=== PATIENT | male | born 2000 | race Caucasian/White ===

== ENCOUNTER 2020-04-20 01:24 | Observation (INO) | payer OTHER ==
[~2020-04-20] VITALS: Ht 182.9 cm; Wt 89.8 kg
[2020-04-20 01:44] LABS: HEMATOCRIT 41.2 % (42.0-52.0); HEMOGLOBIN 14.1 g/dl (13.5-17.5); MEAN CORPUSCULAR HEMOGLOBIN 29.9 pg (27.0-33.0); MEAN CORPUSCULAR HGB CONC 34.2 g/dl (32.0-36.5); MEAN CORPUSCULAR VOLUME 87.3 fl (80.0-96.0); PLATELET COUNT, AUTOMATED 241 10^3/uL (150-450); RED BLOOD COUNT 4.72 10^6/uL (4.30-6.10); WHITE BLOOD COUNT 10.9 10^3/uL (4.0-10.0)
[2020-04-20 02:07] LABS: ACETAMINOPHEN LEVEL < 2.0 UG/ML (10.0-30.0); ALBUMIN 4.5 GM/DL (3.2-5.2); ALT/SGPT 74 U/L (12-78); BILIRUBIN,DIRECT 0.1 MG/DL (0.0-0.2); BILIRUBIN,TOTAL 0.5 MG/DL (0.2-1.0); BLOOD UREA NITROGEN 13 MG/DL (7-18); CALCIUM LEVEL 8.6 MG/DL (8.5-10.1); CARBON DIOXIDE LEVEL 25 MEQ/L (21-32); CHLORIDE LEVEL 108 MEQ/L (98-107); CREATININE FOR GFR 1.08 MG/DL (0.70-1.30); ETHYL ALCOHOL (ETHANOL) 0.188 % (0.000-0.010); GLOMERULAR FILTRATION RATE > 60.0 (>60); GLUCOSE, FASTING 92 MG/DL (70-100); SALICYLATE LEVEL < 1.7 MG/DL (5.0-30.0); SODIUM LEVEL 143 MEQ/L (136-145); TOTAL PROTEIN 8.5 GM/DL (6.4-8.2)
--- NOTE | 2020-04-20 04:11 | HPEPDOC ---
General Date of Admission 04/20/2020 Date of Service: Apr 20, 2020 Primary Care Physician: MELCHOR AGUILAR DO Chief Complaint The patient is a 19-year-old male admitted with a reason for visit of Etoh And Drug Use. 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 He has been in good health. Yesterday morning, he was doing lifts, and in injured his lower back. His pain was persistent and did not improve as the day went on. That evening, he was drinking alcohol. He had 3x 42oz malt. He took someone else's OxyContin to help control the pain. He took a total of 5x 5mg. One of these OxyContin he snorted. His back pain did resolve. His friend was concerned about him and told him to come to the ED. Poison controlled was contacted in the ED. His QRS was 116. They recommended 24 hour monitoring since he snorted one of the OxyContin. They also recommended monitoring the QRS. If prolonged, he would need a Bicarb bolus. After the bolus, they would obtain another EKG to see if there was improvement. If there was improvement, he would need a drip. Pending repeat EKG. Otherwise, when I saw him, he looks intoxicated, but comfortable. He was agreeable. Denies any problems at this time. He is aware of what he has done. Denies depression, anxiety, HI, or SI. Patient will be placed in observation for 24 hour monitoring for overdose. Home Medications No Active Prescriptions or Reported Meds Allergies Coded Allergies: No Known Allergies (Unverified , 04/20/20) Past Medical History Medical History Denies past medical history Surgical History 1. Hughes tooth Family History Denies past medical history in parents Social History * Smoker: current smoker (Smoked for a long time, but could not give me duration), other (Vapes) Alcohol: other (Used to drink everyday, he has now cut back to once a week) Drugs: denies A-FIB/CHADSVASC A-FIB History Current/History of A-Fib/PAF?: No Review of Systems Constitutional: Denies: Chills, Fever Eyes: Denies: Vision change ENT: Denies: Sore Throat Skin: Denies: Rash Pulmonary: Denies: Dyspnea, Cough Cardiovascular: Denies: Chest Pain Gastrointestinal: Denies: Nausea, Abdominal Pain, Diarrhea Genitourinary: Denies: Dysuria Hematologic: Denies: Bruising Musculoskeletal: Denies: Back Pain Psych: Denies: Anxiety, Depression, Thoughts of Self Harm, Thoughts of Harming Other Physical Examination General Exam: Positive: Cooperative, Other (intoxicated) Eye Exam: Positive: EOMI; Negative: Sclera icteric ENT Exam: Positive: Atraumatic Neck Exam: Positive: Supple Chest Exam: Positive: Clear to auscultation; Negative: Rales, Rhonchi, Wheezing Heart Exam: Positive: Rate Normal, Regular Rhythm Abdomen Exam: Positive: Normal bowel sounds, Soft; Negative: Tenderness Extremity Exam: Negative: Edema Neuro Exam: Positive: Cranial Nerves 3-12 NL Psych Exam: Positive: Mood NL Vital Signs Vital Signs Date Time Temp Pulse Resp B/P (MAP) Pulse Ox O2 Delivery O2 Flow Rate FiO2 04/20/20 03:09 94 18 98 Room Air 04/20/20 03:00 120/57 (78) 04/20/20 01:30 97.6 Laboratory Data Labs 24H Laboratory Tests 2 04/20/20 01:29: Nucleated Red Blood Cells % (auto) 0.0, Anion Gap 10, Glomerular Filtration Rate > 60.0, Calcium Level 8.6, Total Bilirubin 0.5, Direct Bilirubin 0.1, Aspartate Amino Transf (AST/SGOT) 41H, Alanine Aminotransferase (ALT/SGPT) 74, Alkaline Phosphatase 86, Total Protein 8.5H, Albumin 4.5, Albumin/Globulin Ratio 1.1, Thy roid Stimulating Hormone (TSH) 2.440, Salicylates Level < 1.7L, Acetaminophen Level < 2.0L, Ethyl Alcohol Level 0.188H 04/20/20 03:41: CBC/BMP Laboratory Tests 04/20/20 01:29 Assessment/Plan 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 He injured his back through exercised. He drank alcohol and took OxyContin to help with the pain. Back pain improved. He was brought to the ED for intoxication. Poison control recommended 24 hour monitoring and monitoring for QRS prolongation. Poison control recommends calling them if QRS becomes longer than 116 (which was the first EKG). Plan / VTE VTE Prophylaxis Ordered?: Yes Plan Plan 1. OxyContin overdose -He was intoxicated with EtOH when it occurred -He took it for back pain. He snorted one of them -Poison control recommend 24 hours monitoring and monitoring QRS. If prolonged, recommending contacting poison control for instruction for Bicarb -Will check another EKG at 1200 today -Monitor on tele 2. Alcohol use -Multivitamin -Thiamine -Folic acid 3. DVT ppx -MELCHOR Cline DO Apr 20, 2020 04:11
[2020-04-20 04:30] LABS: RSV AMPLIFICATION NEGATIVE (NEGATIVE)
[2020-04-20 04:45] LABS: AMPHETAMINES LEVEL URINE NEGATIVE (NEGATIVE); BARBITURATES URINE NEGATIVE (NEGATIVE); BENZODIAZEPINES URINE NEGATIVE (NEGATIVE); CANNABINOIDS URINE NEGATIVE (NEGATIVE); COCAINE METABOLITE URINE NEGATIVE (NEGATIVE); METHADONE URINE NEGATIVE (NEGATIVE); OPIATES URINE POSITIVE (NEGATIVE); PHENCYCLIDINE URINE NEGATIVE (NEGATIVE)
--- OUTSIDE RECORDS SUMMARY | 2020-04-20 04:49 | CCD ---
Author Author [facility] Organization [facility] Address Unknown Phone Unavailable Support Name Relationship Address Phone [facility] Next Of Kin [address] [place] [address] Unavailable Re-disclosure Warning The records that you are about to access may contain information from federally-assisted alcohol or drug abuse programs. If such information is present, then the following federally mandated warning applies: This information has been disclosed to you from records protected by federal confidentiality rules (42 CFR part 2). The federal rules prohibit you from making any further disclosure of this information unless further disclosure is expressly permitted by the written consent of the person to whom it pertains or as otherwise permitted by 42 CFR part 2. A general authorization for the release of medical or other information is NOT sufficient for this purpose. The Federal rules restrict any use of the information to criminally investigate or prosecute any alcohol or drug abuse patient.The records that you are about to access may contain highly sensitive health information, the redisclosure of which is protected by Article 27-F of the [facility] Public Health law. If you continue you may have access to information: Regarding HIV / AIDS; Provided by facilities licensed or operated by the [facility] Office of Mental Health; or Provided by the [facility] Office for People With Developmental Disabilities. If such information is present, then the following [facility] mandated warning applies: This information has been disclosed to you from confidential records which are protected by state law. State law prohibits you from making any further disclosure of this information without the specific written consent of the person to whom it pertains, or as otherwise permitted by law. Any unauthorized further disclosure in violation of state law may result in a fine or mcfp sentence or both. A general authorization for the release of medical or other information is NOT sufficient authorization for further disc losure. Insurance Providers Payer name Policy type / Coverage type Policy ID Covered constitution party ID Covered constitution party's relationship to callahan Policy [place] Plan Information [facility] [employer] [employer] [id number]
--- NOTE | 2020-04-20 05:40 | ECGEPIP ---
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
--- NOTE | 2020-04-20 05:42 | ECGEPIP ---
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
--- NOTE | 2020-04-20 05:42 | ECGEPIP ---
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
[2020-04-20 08:00] VITALS: BP 143/81
[2020-04-20] MEDS: ENOXAPARIN 40MG/0.4ML SYRINGE (J1650 PER 10MG) SC SCH (09:00)
[2020-04-20] MEDS: MULTIVITAMINS/MINERALS THERAP 1 TAB PO SCH (09:17)
[2020-04-20] MEDS: FOLIC ACID 1 MG TAB PO SCH (09:17)
[2020-04-20] MEDS: THIAMINE 100 MG TAB PO SCH (09:17)
--- NOTE | 2020-04-20 12:29 | IPNPDOC ---
Subjective Date Seen The patient was seen on 04/20/20. Subjective Chief Complaint/HPI Somnolent but no complaints. Objective Physical Examination General Exam: Positive: Cooperative, No Acute Distress, Other (somnolent) Eye Exam: Positive: EOMI; Negative: Sclera icteric ENT Exam: Positive: Atraumatic, Mucous membr. moist/pink Neck Exam: Positive: Supple; Negative: JVD, thyromegaly Chest Exam: Positive: Clear to auscultation; Negative: Rales, Rhonchi, Wheezing Heart Exam: Positive: Rate Normal, Regular Rhythm, Normal S1, Normal S2; Negative: Murmurs, Rubs Telemetry: Positive: No significant arrhythmia Abdomen Exam: Positive: Normal bowel sounds, Soft; Negative: Tenderness Extremity Exam: Positive: Normal pulses; Negative: Clubbing, Cyanosis, Edema Skin Exam: Positive: Nl turgor and temperature; Negative: Rash, Breakdown Neuro Exam: Positive: Cranial Nerves 3-12 NL Psych Exam: Positive: Mood NL Assessment /Plan Assessment 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 He had 3x 42oz malt. He took someone else's OxyCodone to help control back pain after his lifts that am. He took a total of 5x 5mg. One of these OxyCodone he snorted. His back pain did resolve. His friend was concerned about him and told him to come to the ED. Poison controlled was contacted in the ED. His QRS was 116. They recommended 24 hour monitoring since he snorted one of the OxyContin. They also recommended monitoring the QRS. If prolonged, he would need a Bicarb bolus. After the bolus, they would obtain another EKG to see if there was improvement. If there was improvement, he would need a drip. His QRS has been ok since admission. Oxycodone overdose He was intoxicated with EtOH when it occurred He took it for back pain. He snorted one of them Poison control recommend 24 hours monitoring and monitoring QRS will recheck EKG at 4 Pm. Acute metabolic encephalopathy from a combination of alcohol and oxycodone. now improving. Alcohol use disorder Multivitamin Thiamine Folic acid DVT ppx Lovenox Plan/VTE VTE Prophylaxis Ordered?: Yes VS, I&O, 24H, Fishbone Vital Signs/I&O Vital Signs Date Time Temp Pulse Resp B/P (MAP) Pulse Ox O2 Delivery O2 Flow Rate FiO2 04/20/20 08:00 98.2 93 18 143/81 (101) 97 Room Air Laboratory Data 24H LABS Laboratory Tests 2 04/20/20 01:29: Nucleated Red Blood Cells % (auto) 0.0, Anion Gap 10, Glomerular Filtration Rate > 60.0, Calcium Level 8.6, Total Bilirubin 0.5, Direct Bilirubin 0.1, Aspartate Amino Transf (AST/SGOT) 41H, Alanine Aminotransferase (ALT/SGPT) 74, Alkaline Phosphatase 86, Total Protein 8.5H, Albumin 4.5, Albumin/Globulin Ratio 1.1, Thyroid Stimulating Hormone (TSH) 2.440, Salicylates Level < 1.7L, Acetaminophen Level < 2.0L, Ethyl Alcohol Level 0.188H 04/20/20 03:41: Coronavirus (COVID-19)(PCR) NEGATIVE, Influenza Type A (RT-PCR) NEGATIVE, Influenza Type B (RT-PCR) NEGATIVE, Respiratory Syncytial Virus (PCR) NEGATIVE 04/20/20 04:04: Urine Opiates Screen POSITIVEH, Urine Methadone Screen NEGATIVE, Urine Barbiturates Screen NEGATIVE, Urine Phencyclidine Screen NEGATIVE, Urine Amphetamines Screen NEGATIVE, Urine Benzodiazepines Screen NEGATIVE, Urine Cocaine Metabolite Screen NEGATIVE, Urine Cannabinoids Screen NEGATIVE CBC/BMP Laboratory Tests 04/20/20 01:29 SYLVIA SCHAEFER MD Apr 20, 2020 12:29
[2020-04-20 14:00] VITALS: BP 139/81
[2020-04-20 22:00] VITALS: BP 142/80
[2020-04-21 06:00] VITALS: BP 138/83
[2020-04-21 06:28] LABS: HEMATOCRIT 39.3 % (42.0-52.0); HEMOGLOBIN 13.7 g/dl (13.5-17.5); MEAN CORPUSCULAR HEMOGLOBIN 30.7 pg (27.0-33.0); MEAN CORPUSCULAR HGB CONC 34.9 g/dl (32.0-36.5); MEAN CORPUSCULAR VOLUME 88.1 fl (80.0-96.0); PLATELET COUNT, AUTOMATED 227 10^3/uL (150-450); RED BLOOD COUNT 4.46 10^6/uL (4.30-6.10); WHITE BLOOD COUNT 7.5 10^3/uL (4.0-10.0)
[2020-04-21 06:51] LABS: ALBUMIN 3.9 GM/DL (3.2-5.2); ALT/SGPT 64 U/L (12-78); BILIRUBIN,TOTAL 0.7 MG/DL (0.2-1.0); BLOOD UREA NITROGEN 15 MG/DL (7-18); CALCIUM LEVEL 9.4 MG/DL (8.5-10.1); CARBON DIOXIDE LEVEL 27 MEQ/L (21-32); CHLORIDE LEVEL 106 MEQ/L (98-107); CREATININE FOR GFR 1.03 MG/DL (0.70-1.30); GLOMERULAR FILTRATION RATE > 60.0 (>60); GLUCOSE, FASTING 88 MG/DL (70-100); POTASSIUM SERUM 4.1 MEQ/L (3.5-5.1); SODIUM LEVEL 140 MEQ/L (136-145); TOTAL PROTEIN 7.6 GM/DL (6.4-8.2)
[2020-04-21] MEDS: ENOXAPARIN 40MG/0.4ML SYRINGE (J1650 PER 10MG) SC SCH (08:30)
[2020-04-21] MEDS: MULTIVITAMINS/MINERALS THERAP 1 TAB PO SCH (08:30)
[2020-04-21] MEDS: THIAMINE 100 MG TAB PO SCH (08:30)
[2020-04-21] MEDS: FOLIC ACID 1 MG TAB PO SCH (08:30)
--- NOTE | 2020-04-21 10:27 | DS.PDOC ---
Discharge Summary General Date of Admission Apr 20, 2020 at 01:25 Date of Discharge 04/21/20 Discharge Summary PROCEDURES PERFORMED DURING STAY: [None]. DISCHARGE DIAGNOSES: Acute metabolic encephalopathy from combination of alcohol and oxycodone. COMPLICATIONS/CHIEF COMPLAINT: Overdose. 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 He had 3x 42oz malt. He took someone else's OxyCodone to help control back pain after his lifts that am. He took a total of 5x 5mg. One of these OxyCodone he snorted. His back pain did resolve. His friend was concerned about him and told him to come to the ED. Poison controlled was contacted in the ED. His QRS was 116. They recommended 24 hour monitoring since he snorted one of the OxyContin. They also recommended monitoring the QRS. If prolonged, he would need a Bicarb bolus. After the bolus, they would obtain another EKG to see if there was improvement. If there was improvement, he would need a drip. His QRS has been ok since admission. Oxycodone overdose He was intoxicated with EtOH when it occurred He took it for back pain. He snorted one of them. No suicidal intent. Poison control recommend 24 hours monitoring and monitoring QRS QRS was not prolonged in the several ekgs done. Acute metabolic encephalopathy from a combination of alcohol and oxycodone. improved Alcohol use counselled about not to combine alcohol with any medications. DISCHARGE MEDICATIONS: Please see below. ALLERGIES: Please see below. PHYSICAL EXAMINATION ON DISCHARGE: VITAL SIGNS: Please see below. General Exam: Positive: Cooperative, No Acute Distress, Other (somnolent) Eye Exam: Positive: EOMI; Negative: Sclera icteric ENT Exam: Positive: Atraumatic, Mucous membr. moist/pink Neck Exam: Positive: Supple; Negative: JVD, thyromegaly Chest Exam: Positive: Clear to auscultation; Negative: Rales, Rhonchi, Wheezing Heart Exam: Positive: Rate Normal, Regular Rhythm, Normal S1, Normal S2; Negative: Murmurs, Rubs Telemetry: Positive: No significant arrhythmia Abdomen Exam: Positive: Normal bowel sounds, Soft; Negative: Tenderness Extremity Exam: Positive: Normal pulses; Negative: Clubbing, Cyanosis, Edema Skin Exam: Positive: Nl turgor and temperature; Negative: Rash, Breakdown Neuro Exam: Positive: Cranial Nerves 3-12 NL Psych Exam: Positive: Mood NL LABORATORY DATA: Please see below. ACTIVITY: [As tolerated]. DIET: Regular DISCHARGE PLAN: Home DISPOSITION: . DISCHARGE INSTRUCTIONS: 1. 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 DISCHARGE CONDITION: [Stable]. TIME SPENT ON DISCHARGE: 31 minutes. Vital Signs/I&Os Vital Signs Date Time Temp Pulse Resp B/P (MAP) Pulse Ox O2 Delivery O2 Flow Rate FiO2 04/21/20 06:00 97.7 80 16 138/83 (101) 98 Room Air I&O- Last 24 Hours up to 6 AM 04/21/20 06:00 Intake Total 1660 ml Output Total 350 ml Balance 1310 ml Laboratory Data Labs 24H Laboratory Tests 2 04/21/20 06:08: Nucleated Red Blood Cells % (auto) 0.0, Anion Gap 7L, Glomerular Filtration Rate > 60.0, Calcium Level 9.4, Total Bilirubin 0.7, Aspartate Amino Transf (AST/SGOT) 30, Alanine Aminotransferase (ALT/SGPT) 64, Alkaline Phosphatase 82, Total Protein 7.6, Albumin 3.9, Albumin/Globulin Ratio 1.1 CBC/BMP Laboratory Tests 04/21/20 06:08 Discharge Medications No Active Prescriptions or Reported Meds Allergies Coded Allergies: No Known Allergies (Unverified , 04/20/20) SYLVIA SCHAEFER MD Apr 21, 2020 10:27
--- NOTE | 2020-04-21 10:57 | ECGEPIP ---
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
--- NOTE | 2020-04-21 11:03 | ECGEPIP ---
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
[2020-04-21 14:00] VITALS: BP 137/77
== END 2020-04-21 16:06 | disposition home or self-care (01) ==
LOC: M ED 01:24 → M ED INP 01:25 → M MSPAV 07:46
PROVIDERS: ADMIT Internal Medicine; ATTEND Internal Medicine
DX: T40.2X1A Poisoning by other opioids, accidental (unintentional), initial encounter (principal); F10.120 Alcohol abuse with intoxication, uncomplicated; G93.41 Metabolic encephalopathy; F17.218 Nicotine dependence, cigarettes, with other nicotine-induced disorders
CPT/HCPCS: 36415; 80048; 80053; 80076; 80143; 80307; 82077; 84443; 85027; 87631; 93005; 96372; 99285; J1650